=== PATIENT | male | born 1960 | race Caucasian/White ===

== ENCOUNTER → 2016-11-30 | Outpatient (CLI) | payer OTHER ==
[~2016-11-30] MED LIST: ADULT LOW DOSE81 MG PO; EPIVIR PO; FISH OIL 1,0001 EAC5 PO; MULTIPLE VITAM1 EAC3 PO; MULTIVITAMINS PO; RISPERDAL PO; TEGRETOL PO
== END ==
LOC: OPONC 07:47
DX: E83.119 Hemochromatosis, unspecified (principal)

== ENCOUNTER → 2016-12-01 | Outpatient (CLI) | payer OTHER ==
[2016-12-01 08:37] VITALS: BP 142/80
[2016-12-01 08:55] VITALS: BP 128/76
== END ==
LOC: OPONC 07:46
DX: E83.119 Hemochromatosis, unspecified (principal)
CPT/HCPCS: 95100

== ENCOUNTER → 2017-05-11 | Outpatient (CLI) | payer OTHER ==
[2017-05-11 08:40] VITALS: BP 158/87
[2017-05-11 08:55] VITALS: BP 147/87
== END ==
LOC: OPONC 00:44
DX: E83.110 Hereditary hemochromatosis (principal)
CPT/HCPCS: 95100

== ENCOUNTER → 2017-08-30 | Outpatient (CLI) | payer OTHER | LOC: OPONC 03:47 | DX: E83.110 Hereditary hemochromatosis (principal) ==

== ENCOUNTER → 2017-10-25 | Outpatient (CLI) | payer OTHER | LOC: OPONC 01:34 | DX: E83.110 Hereditary hemochromatosis (principal) ==

== ENCOUNTER → 2017-10-26 | Outpatient (CLI) | payer OTHER ==
[2017-10-26 08:50] VITALS: BP 153/90
[2017-10-26 09:20] VITALS: BP 163/76
== END ==
LOC: OPONC 00:21
DX: E83.119 Hemochromatosis, unspecified (principal)
CPT/HCPCS: 95100

== ENCOUNTER → 2017-12-20 | Outpatient (CLI) | payer OTHER | LOC: OPONC 07:16 | DX: E83.110 Hereditary hemochromatosis (principal) ==

== ENCOUNTER → 2017-12-21 | Outpatient (CLI) | payer OTHER ==
[2017-12-21 08:15] VITALS: BP 136/86
[2017-12-21 08:37] VITALS: BP 139/76
== END ==
LOC: OPONC 00:38
DX: E83.119 Hemochromatosis, unspecified (principal)
CPT/HCPCS: 95100

== ENCOUNTER → 2018-02-21 | Outpatient (CLI) | payer OTHER ==
[2018-02-21 10:27] LABS: HEMATOCRIT 44.4 % (42.0-52.0); HEMOGLOBIN 15.8 gm/dL (14.0-18.0)
== END ==
LOC: OPONC 00:15
PROVIDERS: Internal Medicine Gastroenterology
DX: E83.110 Hereditary hemochromatosis (principal)

== ENCOUNTER → 2018-02-22 | Outpatient (CLI) | payer OTHER ==
[2018-02-22 09:40] VITALS: BP 145/87
[2018-02-22 10:03] VITALS: BP 162/94
== END ==
LOC: OPONC 01:34
DX: E83.110 Hereditary hemochromatosis (principal)
CPT/HCPCS: 95100

== ENCOUNTER → 2018-05-03 | Outpatient (CLI) | payer OTHER | LOC: OPONC 04-25 00:15 | DX: E83.119 Hemochromatosis, unspecified (principal) ==

== ENCOUNTER → 2018-05-06 | Outpatient (CLI) | payer OTHER ==
[2018-05-06 08:10] VITALS: BP 153/88
[2018-05-06 08:40] VITALS: BP 147/89
== END ==
LOC: OPONC 04-26 07:02
DX: E83.119 Hemochromatosis, unspecified (principal)
CPT/HCPCS: 95100

== ENCOUNTER → 2018-06-27 | Outpatient (CLI) | payer OTHER ==
--- NOTE | 2018-06-27 09:12 | NUR ---
IN FOR HIS PRE-PHLEBOTOMY HGB AND FERRITIN LABS. PENDING RESULTS, PT WILL RETURN IN THE MORNING FOR HIS PHLEBOTOMY.
== END ==
LOC: OPONC 09:13
DX: E83.119 Hemochromatosis, unspecified (principal)

== ENCOUNTER → 2018-06-28 | Outpatient (CLI) | payer OTHER ==
[2018-06-28 09:10] VITALS: BP 136/88
[2018-06-28 09:35] VITALS: BP 139/85
--- NOTE | 2018-06-28 10:45 | NUR ---
IN FOR Q2 MONTH THERAPEUTIC PHLEBOTOMY FOR HEMACHROMATOSIS. STATED FEELING WELL. HGB 15.4, FERRITIN 96. REMOVED 1 UNIT OF BLOOD WITHOUT DIFFICULTY. POST VITAL SIGNS STABLE. DRANK SOME [place] SOD[place]. DENIED DIZZINESS AND WEAKNESS. OBSERVED FOR 20 MINUTES AND THEN DISMISSED IN GOOD CONDITION. SCHEDULED TO RETURN IN AUGUST FOR NEXT PHLEBOTOMY.
== END ==
LOC: OPONC 00:30
DX: E83.119 Hemochromatosis, unspecified (principal)
CPT/HCPCS: 95100

== ENCOUNTER → 2018-08-22 | Outpatient (CLI) | payer OTHER ==
--- NOTE | 2018-08-22 15:25 | NUR ---
IN FOR PRE THERAPEUTIC PHLEBOTOMY LABS. LABS DRAWN PER TELETYPESETTER MONITOR. TO RETURN TOMORROW FOR PHLEBOTOMY. DISMISSED IN GOOD CONDITION.
== END ==
LOC: OPONC 07:40
DX: E83.110 Hereditary hemochromatosis (principal)

== ENCOUNTER → 2018-08-23 | Outpatient (CLI) | payer OTHER ==
[2018-08-23 10:00] VITALS: BP 160/90
[2018-08-23 10:30] VITALS: BP 160/94
--- NOTE | 2018-08-23 10:45 | NUR ---
HERE FOR [id number] THERAPEUTIC PHLEBOTOMY FOR HIS HEMOCHROMATOSIS. PRELABS CHECKED YESTERDAY AND PT QUALIFIES FOR PHLEBOTOMY WITH HGB 15.6, FERRITIN 79. ONE FULL UNIT OBTAINED WITH EXCELLENT BLOOD FLOW, NO UNTOWARD SIDE EFFECTS NOTED. DRANK A COKE PRIOR TO DISMISSAL, VSS, REPORTS FEELING WELL. DISMISSED IN STABLE CONDITION. SCHEDULED TO RETURN IN 2 MONTHS.
== END ==
LOC: OPONC 07:56
DX: E83.110 Hereditary hemochromatosis (principal)
CPT/HCPCS: 95100

== ENCOUNTER → 2018-10-24 | Outpatient (CLI) | payer OTHER ==
[~2018-10-24] MED LIST changes: +CARBATROL100 MG PO; +LATUDA20 MG PO; +LISINOPRIL10 MG PO; +RISPERDAL 3 MG T3 M1 PO; -RISPERDAL PO; -TEGRETOL PO
--- NOTE | 2018-10-24 09:31 | NUR ---
HERE FOR PRE-PHLEBOTOMY LABS. WILL RETURN TOMORROW FOR THERAPEUTIC PHLEBOTOMY IF LABS QUALIFY.
[2018-10-24 09:41] LABS: HEMATOCRIT 43.1 % (42.0-52.0)
== END ==
LOC: OPONC 00:19
PROVIDERS: Internal Medicine Gastroenterology
DX: E83.110 Hereditary hemochromatosis (principal)

== ENCOUNTER → 2018-10-25 | Outpatient (CLI) | payer OTHER ==
[2018-10-25 08:40] VITALS: BP 149/80
[2018-10-25 09:05] VITALS: BP 144/79
--- NOTE | 2018-10-25 09:17 | NUR ---
RETURNED TODAY FOR HIS THERAPEUTIC PHLEBOTOMY. HGB 15.0, FERRITIN 114. ONE FULL UNIT OBTAINED WITHOUT DIFFICULTY FROM L AC. PT TOLERATED WELL, VSS, DENIES ANY UNTOWARD EFFECTS. DRANK A COKE THEN DISMISSED IN STABLE CONDITION. SCHEDULED TO RETURN IN 8 WEEKS.
== END ==
LOC: OPONC 01:50
DX: E83.110 Hereditary hemochromatosis (principal)
CPT/HCPCS: 95100

== ENCOUNTER → 2018-12-19 | Outpatient (CLI) | payer OTHER ==
[2018-12-19 10:10] LABS: HEMATOCRIT 42.3 % (42.0-52.0); HEMOGLOBIN 14.5 gm/dL (14.0-18.0)
--- NOTE | 2018-12-19 13:02 | NUR ---
IN FOR PRE TREATMENT LAB. H&H AND FERRITIN DRAWN PER AUTO RESEARCH ENGINEER. TO RETURN TOMORROW FOR THERAPEUTIC PHLEBOTOMY. DISMISSED IN GOOD CONDITION.
== END ==
LOC: OPONC 01:03
PROVIDERS: Internal Medicine Gastroenterology
DX: E83.110 Hereditary hemochromatosis (principal)

== ENCOUNTER → 2018-12-20 | Outpatient (CLI) | payer OTHER ==
[2018-12-20 08:05] VITALS: BP 145/81
[2018-12-20 08:30] VITALS: BP 122/81
--- NOTE | 2018-12-20 08:43 | NUR ---
IN FOR THERAPEUTIC PHLEBOTOMY FOR HEMACHROMATOSIS. PRE TREATMENT LAB DONE YESTERDAY. HGB 14.5, FERRITIN 105. REMOVED ONE UNIT BLOOD. DRANK SOME ORANGE JUICE AND OBSERVED FOR 20 MINUTES. POST VITAL SIGNS GOOD. SCHEDULED NEXT APPT. DISMISSED IN GOOD CONDITION.
== END ==
LOC: OPONC 00:35
DX: E83.110 Hereditary hemochromatosis (principal)
CPT/HCPCS: 95100

== ENCOUNTER → 2019-01-24 | Outpatient (CLI) | payer OTHER | LOC: OPONC 01:52 | DX: E83.119 Hemochromatosis, unspecified (principal) ==

== ENCOUNTER → 2019-01-25 | Outpatient (CLI) | payer OTHER ==
[2019-01-25 08:20] VITALS: BP 141/80
[2019-01-25 08:45] VITALS: BP 141/86
--- NOTE | 2019-01-25 09:07 | NUR ---
HERE FOR Q6W THERAPEUTIC PHLEBOTOMY. REPORTS DOING WELL, LOOKS GOOD. PRE- TREATMENT LABS DRAWN YESTERDAY. 1 FULL UNIT REMOVED WITH PHLEBOTOMY TODAY WITHOUT INCIDENT. PT TOLERATED WELL. VSS. DRANK JUICE AND SODA PRIOR TO DISMISSAL. SCHEDULED TO RETURN IN 6 WEEKS.
== END ==
LOC: OPONC 00:48
DX: E83.119 Hemochromatosis, unspecified (principal)
CPT/HCPCS: 95100

== ENCOUNTER → 2019-03-06 | Outpatient (CLI) | payer OTHER ==
[2019-03-06 09:29] LABS: HEMATOCRIT 44.4 % (42.0-52.0); HEMOGLOBIN 15.1 gm/dL (14.0-18.0)
--- NOTE | 2019-03-06 09:30 | NUR ---
PRE TREATMENT LABS DRAWN. PT TO RETURN TOMORROW FOR HIS THERAPEUTIC PHLEBOTOMY.
== END ==
LOC: OPONC 02:58
PROVIDERS: Internal Medicine Gastroenterology
DX: E83.119 Hemochromatosis, unspecified (principal)

== ENCOUNTER → 2019-03-07 | Outpatient (CLI) | payer OTHER ==
[2019-03-07 08:12] VITALS: BP 146/85
--- NOTE | 2019-03-07 08:40 | NUR ---
HERE FOR Q6W THERAPEUTIC PHLEBOTOMY FOR HEREDITARY HEMACHROMATOSIS. PRE PHLEBOTOMY LABS DRAWN YESTERDAY. HGB 15.1. FERRITIN 92. ONE FULL UNIT OBTAINED FROM L AC, GOOD BLOOD FLOW, TOLERATED WITHOUT INCIDENT. DRANK A JUICE AND SODA POST. VSS. DISMISSED IN STABLE CONDITION. SCHEDULED TO RETURN AGAIN IN 6 WEEKS.
[2019-03-07 09:37] VITALS: BP 154/85
== END ==
LOC: OPONC 02:08
DX: E83.110 Hereditary hemochromatosis (principal)
CPT/HCPCS: 95100

== ENCOUNTER → 2019-04-17 | Outpatient (CLI) | payer OTHER ==
--- NOTE | 2019-04-17 08:51 | NUR ---
IN FOR LAB DRAW FOR THERAPEUTIC PHLEBOTOMY. HGB AND FERRITIN DRAWN BY STOCK CONTROL CLERK. WILL RETURN TOMORROW FOR THERAPEUTIC PHLEBOTOMY IF NEEDED PER LAB PARAMETERS. DISMISSED IN GOOD CONDITION.
== END ==
LOC: OPONC 09:07
DX: E83.110 Hereditary hemochromatosis (principal)

== ENCOUNTER → 2019-04-18 | Outpatient (CLI) | payer OTHER ==
[2019-04-18 08:06] VITALS: BP 142/78
[2019-04-18 08:23] VITALS: BP 134/77
--- NOTE | 2019-04-18 08:35 | NUR ---
HERE FOR Q6W THERAPEUTIC PHLEBOTOMY. REPORTS FEELING WELL. TOLERATED PHLEBOTOMY WITHOUT INCIDENT, DRANK 1 COKE, 1 APPLE JUICE POST, VSS POST. SCHEDULED TO RETURN IN 7 WEEKS PER PT REQUEST. DISMISSED IN STABLE CONDITION.
== END ==
LOC: OPONC 10:16
DX: E83.110 Hereditary hemochromatosis (principal)
CPT/HCPCS: 95100

== ENCOUNTER → 2019-06-05 | Outpatient (CLI) | payer OTHER ==
--- NOTE | 2019-06-05 14:40 | NUR ---
IN FOR PRE THERAPEUTIC PHLEBOTOMY LAB. HGB AND FERRITIN DRAWN PER GRAPHIC PRE PRESS TRADES WORKER. TO RETURN TOMORROW IF NEEDS THERAPEUTIC PHLEBOTOMY. DISMISSED IN GOOD CONDITION.
== END ==
LOC: OPONC 08:54
DX: E83.119 Hemochromatosis, unspecified (principal)

== ENCOUNTER → 2019-06-06 | Outpatient (CLI) | payer OTHER ==
[2019-06-06 09:05] VITALS: BP 150/92
--- NOTE | 2019-06-06 09:44 | NUR ---
IN FOR THERAPEUTIC PHLEBOTOMY. STATED FEELING WELL. REMOVED 1 UNIT BLOOD AND TOLERATED WELL. DRANK SOME COKE AND OBSERVED FOR 20 MINUTES. POST VITAL SIGNS GOOD. SCHEDULED TO RETURN IN 6 WEEKS. DISMISSED IN GOOD CONDITION.
== END ==
LOC: OPONC 08:57
DX: E83.119 Hemochromatosis, unspecified (principal)
CPT/HCPCS: 95100

== ENCOUNTER → 2019-07-24 | Outpatient (CLI) | payer OTHER | LOC: OPONC 07-17 09:17 | DX: E83.119 Hemochromatosis, unspecified (principal) ==

== ENCOUNTER → 2019-09-07 | Outpatient (CLI) | payer OTHER ==
[2019-09-07 09:08] LABS: HEMATOCRIT 46.1 % (42.0-52.0); HEMOGLOBIN 15.9 gm/dL (14.0-18.0)
== END ==
LOC: OPONC 09-04 09:47
PROVIDERS: Internal Medicine Gastroenterology
DX: E83.110 Hereditary hemochromatosis (principal)

== ENCOUNTER → 2019-09-08 | Outpatient (CLI) | payer OTHER ==
[2019-09-08 08:45] VITALS: BP 136/90
[2019-09-08 09:00] VITALS: BP 128/96
--- NOTE | 2019-09-08 09:28 | NUR ---
IN FOR THERAPEUTIC PHLEBOTOMY. STATED FEELING WELL. PATIENT STATED ATE BREAKFAST BEFORE COMING. REMOVED 1 UNIT BLOOD WITHOUT DIFFICULTY. APPLIED PRESSURE DRESSING. POST VITAL SIGNS STABLE. DRANK SOME COKE. TO RETURN IN 6 WEEKS. DISMISSED IN GOOD CONDITION.
== END ==
LOC: OPONC 09-05 09:51
DX: E83.119 Hemochromatosis, unspecified (principal)
CPT/HCPCS: 95100

== ENCOUNTER → 2019-10-19 | Outpatient (CLI) | payer OTHER ==
--- NOTE | 2019-10-19 08:49 | NUR ---
IN FOR HGB AND FERRITIN DAY BEFORE THERAPEUTIC PHLEBOTOMY. WILL CALL PATIENT WITH RESULTS AND FOLLOW STANDING ORDER TO DO THERAPEUTIC PHLEBOTOMY TOMORROW IF HGB > 10, FERRITIN > 50. DISMISSED IN GOOD CONDITION.
== END ==
LOC: OPONC 08:13
DX: E83.119 Hemochromatosis, unspecified (principal)

== ENCOUNTER → 2019-10-20 | Outpatient (CLI) | payer OTHER ==
[2019-10-20 08:30] VITALS: BP 140/78
[2019-10-20 08:50] VITALS: BP 133/76
--- NOTE | 2019-10-20 12:38 | NUR ---
IN FOR THERAPEUTIC PHLEBOTOMY FOR HEMACHROMATOSIS. HGB 15.7/FERRITIN 64. REMOVED 1 UNIT BLOOD WITHOUT DIFFICULTY. PATIENT DRANK A COKE AND OBSERVED FOR 15 MIN. POST BP GOOD. DISMISSED IN GOOD CONDITION.
== END ==
LOC: OPONC 09:14
DX: E83.119 Hemochromatosis, unspecified (principal)
CPT/HCPCS: 95100

== ENCOUNTER → 2019-11-30 | Outpatient (CLI) | payer OTHER ==
[2019-11-30 09:33] LABS: HEMATOCRIT 45.6 % (42.0-52.0); HEMOGLOBIN 15.6 gm/dL (14.0-18.0)
== END ==
LOC: OPONC 08:27
PROVIDERS: ATTEND Internal Medicine Gastroenterology
DX: E83.110 Hereditary hemochromatosis (principal)

== ENCOUNTER → 2019-12-01 | Outpatient (CLI) | payer OTHER ==
[2019-12-01 08:30] VITALS: BP 128/63
[2019-12-01 09:40] VITALS: BP 129/68
--- NOTE | 2019-12-01 13:57 | NUR ---
IN FOR THERAPEUTIC PHLEBOTOMY FOR HEMACHROMATOSIS. STATED FEELING WELL. IV TEAM PLACED NEEDLE AFTER 2 STICKS. 1 UNIT OF BLOOD REMOVED. TOLERATED WELL. DRANK A COKE AND OBSERVED FOR 20 MINUTES. POST BP 129/68. SCHEDULED TO RETURN IN 6 WEEKS. DISMISSED IN STABLE CONDITION.
== END ==
LOC: OPONC 09:50
PROVIDERS: ATTEND Internal Medicine Gastroenterology
DX: E83.119 Hemochromatosis, unspecified (principal)
CPT/HCPCS: 95100

== ENCOUNTER → 2020-01-11 | Outpatient (CLI) | payer OTHER ==
[2020-01-11 09:06] LABS: HEMATOCRIT 45.5 % (42.0-52.0); HEMOGLOBIN 15.7 gm/dL (14.0-18.0)
--- NOTE | 2020-01-11 16:27 | NUR ---
IN FOR PRE THERAPEUTIC PHLEBOTOMY LAB. TAPING FOREMAN REANNA LAB. FERRITIN LESS THAN 50, PHLEBOTOMY HELD PER STANDING ORDERS. SCHEDULED TO REMOVE IN 2 MONTHS. DISMISSED IN GOOD CONDITION.
== END ==
LOC: OPONC 08:41
PROVIDERS: ATTEND Internal Medicine Gastroenterology
DX: E83.110 Hereditary hemochromatosis (principal)

== ENCOUNTER → 2020-02-22 | Outpatient (CLI) | payer OTHER ==
[2020-02-22 09:26] LABS: HEMATOCRIT 44.4 % (42.0-52.0); HEMOGLOBIN 15.2 gm/dL (14.0-18.0)
== END ==
LOC: OPONC 08:37
PROVIDERS: ATTEND Internal Medicine Gastroenterology
DX: E83.119 Hemochromatosis, unspecified (principal)

== ENCOUNTER → 2020-02-23 | Outpatient (CLI) | payer OTHER ==
[2020-02-23 10:05] VITALS: BP 142/68
[2020-02-23 10:25] VITALS: BP 139/72
--- NOTE | 2020-02-23 14:16 | NUR ---
IN FOR THERAPEUTIC PHLEBOTOMY FOR HEMACHROMATOSIS. REMOVED 1 UNIT WITHOUT DIFFICULTY. POST VITAL SIGNS GOOD. DRANK A COKE AND OBSERVED FOR 20 MINUTES. DISMISSED IN GOOD CONDITION. NEXT APPT IS AND .
== END ==
LOC: OPONC 08:20
PROVIDERS: ATTEND Internal Medicine Gastroenterology
DX: E83.119 Hemochromatosis, unspecified (principal)
CPT/HCPCS: 95100

== ENCOUNTER → 2020-04-04 | Outpatient (CLI) | payer OTHER | LOC: OPONC 09:04 | PROVIDERS: ATTEND Internal Medicine Gastroenterology | DX: E83.119 Hemochromatosis, unspecified (principal) ==

== ENCOUNTER → 2020-04-05 | Outpatient (CLI) | payer OTHER ==
[2020-04-05 08:35] VITALS: BP 144/66
[2020-04-05 08:55] VITALS: BP 134/70
--- NOTE | 2020-04-05 11:03 | NUR ---
IN FOR Q6 WEEK THERAPEUTIC PHLEBOTOMY FOR HEMOCHROMATOSIS. STATED FEELING WELL. SCALE CALIBRATED BY [employer]. USING THE BLOOD BANK TUBING, REMOVED 1 UNIT, 500ML OF BLOOD THROUGH LEFT ANTECUBITAL VEIN. PATIENT TOLERATED WELL. POST BP GOOD. DRANK A COKE AND OBSERVED FOR 20 MINUTES. DISMISSED IN GOOD CONDITION.
== END ==
LOC: OPONC 08:53
PROVIDERS: ATTEND Internal Medicine Gastroenterology
DX: E83.119 Hemochromatosis, unspecified (principal)
CPT/HCPCS: 95100

== ENCOUNTER → 2020-05-30 | Outpatient (CLI) | payer OTHER | LOC: OPONC 08:41 | PROVIDERS: ATTEND Internal Medicine Gastroenterology | DX: E83.110 Hereditary hemochromatosis (principal) ==

== ENCOUNTER → 2020-05-31 | Outpatient (CLI) | payer OTHER ==
[2020-05-31 08:40] VITALS: BP 153/73
[2020-05-31 09:00] VITALS: BP 144/96
--- NOTE | 2020-05-31 09:36 | NUR ---
IN FOR THERAPEUTIC PHLEBOTOMY FOR HEMOCHROMATOSIS. STATED FEELING WELL. DENIED FEVER/CHILLS, COUGH, SOB, PAIN. THERAPEUTIC PHLEBOTOMY DONE IN RAC. REMOVED I UNIT, 500 ML BLOOD. MEASURED BLOOD BY LISSET ON PHLEBOTOMY BAG. TOLERATED PROCEDURE WELL. POST VITAL SIGNS STABLE. DRANK A COKE AND OBSERVED FOR 20 MINUTES. DISMISSED IN GOOD CONDITION. TO RETURN IN 6 WEEKS FOR THE SAME.
== END ==
LOC: OPONC 09:35
PROVIDERS: ATTEND Internal Medicine Gastroenterology
DX: E83.119 Hemochromatosis, unspecified (principal)
CPT/HCPCS: 95100

== ENCOUNTER → 2020-07-16 | Outpatient (CLI) | payer OTHER ==
[2020-07-16 09:06] LABS: HEMATOCRIT 45.5 % (42.0-52.0); HEMOGLOBIN 15.3 gm/dL (14.0-18.0)
== END ==
LOC: OPONC 07-11 09:31
PROVIDERS: ATTEND Internal Medicine Gastroenterology
DX: E83.110 Hereditary hemochromatosis (principal)

== ENCOUNTER → 2020-08-26 | Outpatient (CLI) | payer OTHER ==
[2020-08-26 09:08] LABS: HEMATOCRIT 45.6 % (42.0-52.0); HEMOGLOBIN 15.5 gm/dL (14.0-18.0)
== END ==
LOC: OPONC 09:29
PROVIDERS: ATTEND Internal Medicine Gastroenterology
DX: E83.119 Hemochromatosis, unspecified (principal)

== ENCOUNTER → 2020-08-27 | Outpatient (CLI) | payer OTHER ==
[2020-08-27 08:05] VITALS: BP 140/68
[2020-08-27 08:25] VITALS: BP 120/71
--- NOTE | 2020-08-27 08:30 | NUR ---
HERE FOR Q6WK THERAPEUTIC PHLEBOTOMY. REPORTS DOING WELL, FEELING WELL. LABS DRAWN YESTERDAY AND MET PARAMETERS TO PROCEED. ONE FULL UNIT OBTAINED WITHOUT DIFFICULTY, PT TOLERATED WELL, DRANK 2 CANS OF COLA PRIOR TO DISMISSAL. WILL SCHEDULE TO RETURN AGAIN IN 6 WEEKS. ENCOURAGED TO DRINK PLENTY OF FLUIDS. GOOD HEMOSTASIS OF PHLEBOTOMY SITE; PRESSURE WRAP IN PLACE.
== END ==
LOC: OPONC 09:00
PROVIDERS: ATTEND Internal Medicine Gastroenterology
DX: E83.119 Hemochromatosis, unspecified (principal)
CPT/HCPCS: 95100

== ENCOUNTER → 2020-10-08 | Outpatient (CLI) | payer OTHER | LOC: OPONC 10-07 10:06 | PROVIDERS: ATTEND Internal Medicine Gastroenterology | DX: E83.110 Hereditary hemochromatosis (principal) ==

== ENCOUNTER → 2020-10-09 | Outpatient (CLI) | payer OTHER ==
[2020-10-09 09:00] VITALS: BP 158/82
[2020-10-09 09:20] VITALS: BP 142/83
--- NOTE | 2020-10-09 17:37 | NUR ---
HERE FOR Q6WEEK THERAPEUTIC PHLEBOTOMY. MEETS REQUIREMENTS WITH HGB 15.3, FERRITIN 59. PT REPORTS DOING WELL, FEELS WELL. TOLERATED PHLEBOTOMY WITHOUT INCIDENT. GIVEN A COKE TO DRINK. VSS POST. DISMISSED IN STABLE CONDITION. SCHEDULED TO RETURN IN 6 WEEKS.
== END ==
LOC: OPONC 10-08 10:00
PROVIDERS: ATTEND Internal Medicine Gastroenterology
DX: E83.110 Hereditary hemochromatosis (principal)
CPT/HCPCS: 95100

== ENCOUNTER → 2020-11-18 | Outpatient (CLI) | payer OTHER ==
--- NOTE | 2020-11-18 08:55 | NUR ---
PATIENT ARRIVED AMBULATORY FOR LABS. FERRITIN AND H&H DRAWN BY LAB AND PATIENT DISCHARGED IN STABLE CONDITION TO HOME. INSTRUCTED TO HYDRATE. PATIENT TO RETURN TOMORROW IN AM FOR THERAPEUTIC PHLEBOTOMY.
[2020-11-18 09:05] LABS: HEMATOCRIT 42.9 % (42.0-52.0); HEMOGLOBIN 15.1 gm/dL (14.0-18.0)
== END ==
LOC: OPONC 09:25
PROVIDERS: ATTEND Internal Medicine Gastroenterology
DX: E83.110 Hereditary hemochromatosis (principal)

== ENCOUNTER → 2020-12-31 | Outpatient (CLI) | payer OTHER ==
--- NOTE | 2020-12-31 09:05 | NUR ---
HERE FOR PRE THERAPEUTIC PHLEBOTOMY LAB DRAW, DONE BY NURSE. PT SCHEDULED TO RETURN TOMORROW FOR HIS PHLEBOTOMY. DISMISSED IN STABLE CONDITION.
[2020-12-31 09:29] LABS: HEMOGLOBIN 15.3 gm/dL (14.0-18.0)
== END ==
LOC: OPONC 11:53
PROVIDERS: ATTEND Internal Medicine Gastroenterology
DX: E83.110 Hereditary hemochromatosis (principal)
CPT/HCPCS: 95116

== ENCOUNTER → 2021-01-01 | Outpatient (CLI) | payer OTHER ==
[2021-01-01 08:10] VITALS: BP 144/83
[2021-01-01 08:30] VITALS: BP 141/101
--- NOTE | 2021-01-01 08:40 | NUR ---
HERE FOR Q6W THERAPEUTIC PHLEBOTOMY. REPORTS DOING WELL. MEETS PARAMETERS TO PROCEED WITH HGB 15.3, FERRITIN 57. 1 FULL UNIT REMOVED FROM LAC WITHOUT INCIDENT. PT TOLERATED WELL. GIVEN TWO SMALL SODAS TO DRINK. DISMISSED IN STABLE CONDITION. SCHEDULED TO RETURN AGAIN ON 02/10 AND 02/11.
== END ==
LOC: OPONC 11-19 09:47
PROVIDERS: ATTEND Internal Medicine Gastroenterology
DX: E83.110 Hereditary hemochromatosis (principal)
CPT/HCPCS: 95100

== ENCOUNTER → 2021-02-10 | Outpatient (CLI) | payer OTHER ==
[2021-02-10 08:35] LABS: HEMATOCRIT 45.5 % (42.0-52.0); HEMOGLOBIN 15.6 gm/dL (14.0-18.0)
--- NOTE | 2021-02-10 08:38 | NUR ---
PT IN FOR PRE TREATMENT LABS TODAY, H&H & FERRITIN, TO SEE IF HE MEETS PARAMETERS FOR THERAPEUTIC PHLEBOTOMY SCHEDULED FOR TOMORROW. LABS DRAWN WITHOUT INCIDENT, PT DISMISSED. SCHEDULED TO RETURN IN THE MORNING.
--- NOTE | 2021-02-10 12:30 | NUR ---
CALLED PT AND FAXED LAB REPORT TO DR. YAN'S OFFICE. NO PHLEBOTOMY NEEDED. APPT FOR TOMORROW CANCELLED AND PT NOW SET UP TO RETURN ON MAR 24 AND FOR NEXT LAB DRAW AND PHLEBOTOMY.
== END ==
LOC: OPONC 08:10
PROVIDERS: ATTEND Internal Medicine Gastroenterology
DX: E83.110 Hereditary hemochromatosis (principal)

== ENCOUNTER → 2021-03-24 | Outpatient (CLI) | payer OTHER ==
--- NOTE | 2021-03-24 08:30 | NUR ---
HERE FOR LABS PRE THERAPEUTIC PHLEBOTOMY TOMORROW. DRAWN FROM LEFT ANTECUBITAL. PT WILL RETURN TOMORROW FOR HIS PHLEBOTOMY IF MEETS PARAMETERS.
[2021-03-24 09:16] LABS: HEMOGLOBIN 15.4 gm/dL (14.0-18.0)
== END ==
LOC: OPONC 09:40
PROVIDERS: ATTEND Internal Medicine Gastroenterology
DX: E83.119 Hemochromatosis, unspecified (principal)

== ENCOUNTER → 2021-03-25 | Outpatient (CLI) | payer OTHER ==
[2021-03-25 08:30] VITALS: BP 137/83
[2021-03-25 09:00] VITALS: BP 135/77
--- NOTE | 2021-03-25 09:56 | NUR ---
PT HERE FOR THERAPEUTIC PHLEBOTOMY. LABS DRAWN YESTERDAY: HGB 15.4, FERRITIN 87. RESULTS FAXED TO DR YAN YESTERDAY. PT HAS NO NEW SYMPTOMS OR PAIN TO REPORT. NO CHANGES IN MEDICATIONS. PHLEBOTOMY PERFORMED PER ORDER USING L AC. 510 GM REMOVED USING CALIBRATED SCALE. PT TOLERATED PROCEDURE WITH NO CONCERNS. POST-VITALS STABLE. PT SAT AND DRANK A SODA BEFORE LEAVING. AMBULATED OUT OF UNIT IN STABLE CONDITION. SCHEDULED TO RETRUN IN 6 WEEKS.
== END ==
LOC: OPONC 10:02
PROVIDERS: ATTEND Internal Medicine Gastroenterology
DX: E83.119 Hemochromatosis, unspecified (principal)
CPT/HCPCS: 95100

== ENCOUNTER → 2021-05-07 | Outpatient (CLI) | payer OTHER ==
--- NOTE | 2021-05-07 09:15 | NUR ---
HERE FOR PRE-PHLEBOTOMY LABS, DRAWN BY NURSE. PT SCHEDULED TO RETURN TOMORROW FOR HIS PHLEBOTOMY
[2021-05-07 09:42] LABS: HEMATOCRIT 45.6 % (42.0-52.0); HEMOGLOBIN 15.5 gm/dL (14.0-18.0)
== END ==
LOC: OPONC 05-05 10:13
PROVIDERS: ATTEND Internal Medicine Gastroenterology
DX: E83.110 Hereditary hemochromatosis (principal)
CPT/HCPCS: 95116

== ENCOUNTER → 2021-05-08 | Outpatient (CLI) | payer OTHER ==
[2021-05-08 08:12] VITALS: BP 133/83
[2021-05-08 08:32] VITALS: BP 131/81
--- NOTE | 2021-05-08 08:45 | NUR ---
HERE FOR Q6WEEK THERAPEUTIC PHLEBOTOMY FOR HEMACHROMATOSIS. PRE TREATMENT LABS DRAWN YESTERDAY, HGB 15.5, HCT 45.6, FERRITIN 67, MEETING PARAMETERS. ONE FULL UNIT OBTAINED WITH PHLEBOTOMY WITHOUT INCIDENT, PT TOLERATED WELL, VSS, HEMOSTASIS OBTAINED. PT ENCOURAGED TO DRINK PLENTY OF FLUIDS TODAY. DISMISSED IN STABLE CONDITION. SCHEDULED TO RETURN AGAIN IN 6 WEEKS.
== END ==
LOC: OPONC 12:00
PROVIDERS: ATTEND Internal Medicine Gastroenterology
DX: E83.119 Hemochromatosis, unspecified (principal)
CPT/HCPCS: 95100

== ENCOUNTER → 2021-06-17 | Outpatient (CLI) | payer OTHER ==
[2021-06-17 09:10] LABS: HEMATOCRIT 46.1 % (42.0-52.0); HEMOGLOBIN 15.6 gm/dL (14.0-18.0)
--- NOTE | 2021-06-17 09:58 | NUR ---
HERE FOR Q6 WEEK PRE-THERAPEUTIC PHLEBOTOMY LABS. DRAWN BY NURSE. PT TO RETURN TOMORROW FOR HIS PHLEBOTOMY
== END ==
LOC: OPONC 12:52
PROVIDERS: ATTEND Internal Medicine Gastroenterology
DX: E83.119 Hemochromatosis, unspecified (principal)
CPT/HCPCS: 95116

== ENCOUNTER → 2021-06-19 | Outpatient (CLI) | payer OTHER ==
[2021-06-19 09:10] VITALS: BP 146/95
[2021-06-19 09:35] VITALS: BP 128/97
--- NOTE | 2021-06-19 09:45 | NUR ---
HERE FOR Q6W THERAPEUTIC PHLEBOTOMY FOR HEMACHROMATOSIS. LABS DRAWN YESTERDAY, MET PARAMETERS WITH HGB 15.6, FERRITIN 56. ONE FULL UNIT OBTAINED, GOOD FLOW, PT TOLERATED WELL. ENCOURAGED TO DRINK PLENTY OF FLUIDS TODAY. WILL RETURN IN 6 WEEKS ON 07/28, 07/29. DISMISSED IN STABLE CONDITION.
== END ==
LOC: OPONC 08:46
PROVIDERS: ATTEND Internal Medicine Gastroenterology
DX: E83.119 Hemochromatosis, unspecified (principal)
CPT/HCPCS: 95100